=== PATIENT | male | born 1975 | race Two or more races ===

== ENCOUNTER 2019-02-09 16:22 | Emergency (ER) | payer MEDICAID, MEDICARE, OTHER ==
[~2019-02-09] VITALS: Ht 162.6 cm; Wt 81.6 kg
--- NOTE | 2019-02-09 16:34 | NUR ---
ED Nurse Note: PT WALKED IN TO ER TODAY FROM HOME. 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 PT'S SISTER AT BEDSIDE. PER SISTER, PT HAS HAD A ITCHY RASH ON BILATERAL HANDS X 2 DAYS AGO SPREADING TO BILATERAL LOWER LEGS, NECK, AND RIGHT SIDE OF FACE AND EAR X YESTERDAY. PT'S SISTER DENIES ANY CHANGES IN DIET, LAUNDRY DETERGENT OR SOAP. PT'S SISTER STATES THAT THE PT WAS PICKING CHRIS X 2 DAYS AGO AND THAT THERE WERE A LOT OF INSECTS.
[2019-02-09 16:38] VITALS: BP 134/86
[2019-02-09] MEDS ORDERED: Bacitracin Oint UD TOPIC ONE ×3 (16:48→17:00)
--- NOTE | 2019-02-09 16:49 | Emergency Room Report ---
History of Present Illness General Chief Complaint: Skin Rash/Abscess Source: Patient, Family Member Present Illness HPI 43-year-old male with unknown mental illness history brought in by sister complaining of 1 day of pruritic and painful blisters on both hands, posterior auricular right ear, and bilateral feet. Patient is unable to talk and sister does not know which mental illness patient has. Sister reports that she does not know how this happen as patient was with his father yesterday and they were gardening. Does not know whether there was chemical exposure, insect bite. Patient is a poor historian himself. However does not appear in any distress. Vitals are within normal limits. Denies chest pain, shortness of breath, palpitation, fever and chills. Denies tingling numbness. Patient reports that he has full sensation when I asked him a question. Up-to-date with his immunization patient is rating the pain 7 out of 10 without radiation and has not taken any medication. Complains mostly pruritus and there are few blisters that are bleeding his hands Allergies: Coded Allergies: No Known Allergies (Unverified , 02/09/19) Patient History Past Medical History: see triage record Past Surgical History: unable to obtain Pertinent Family History: none Immunizations: UTD Reviewed Nursing Documentation: PMH: Agreed; PSxH: Agreed Nursing Documentation-PMH Past Medical History: No Stated History Review of Systems All Other Systems: negative except mentioned in HPI Physical Exam Vital Signs Date Time Temp Pulse Resp B/P (MAP) Pulse Ox O2 Delivery O2 Flow Rate FiO2 02/09/19 16:27 98.1 76 21 140/93 (109) 98 Room Air General Appearance: normal inspection, well appearing, no apparent distress, alert, GCS 15 Head: normocephalic, atraumatic Eyes: bilateral eye normal inspection, bilateral eye PERRL ENT: normal ENT inspection, hearing grossly normal, normal pharynx Neck: normal inspection, full range of motion, supple, thyroid normal, no meningismus Respiratory: normal inspection, chest non-tender, lungs clear, no rhonchi, no wheezing Cardiovascular #1: normal inspection, normal peripheral pulses, regular rate, rhythm, no murmur, normal capillary refill Cardiovascular #2: 2+ radial (R), 2+ radial (L) Gastrointestinal: normal inspection, soft Genitourinary: no CVA tenderness Musculoskeletal: digits/nails normal, swelling - Bilateral hands, bilateral feet with multiple blisters Neurologic: normal inspection, alert, oriented x3 Psychiatric: normal inspection, judgement/insight normal Skin: other - Multiple clear fluid-filled blisters some bleeding on bilateral dorsum of the hands and feet, and posterior auricular on the right side Lymphatic: normal inspection, no adenopathy Procedures Additional Procedure Procedure Narrative Bacitracin was applied and nonadhesive dressing was applied Medical Decision Making PA Attestation All my diagnosis and treatment plans were reviewed ad discussed with my supervising physician Dr. Davis Diagnostic Impression: Primary Impression: Bullae Additional Impression: Poison anila dermatitis ER Course 43-year-old male with unknown mental illness history brought in by sister complaining of 1 day of pruritic and painful blisters on both hands, posterior auricular right ear, and bilateral feet. Patient is unable to talk and sister does not know which mental illness patient has. Sister reports that she does not know how this happen as patient was with his father yesterday and they were gardening. Does not know whether there was chemical exposure, insect bite. Patient is a poor historian himself. However does not appear in any distress. Vitals are within normal limits. Denies chest pain, shortness of breath, palpitation, fever and chills. Denies tingling numbness. Patient reports that he has full sensation when I asked him a question. Up-to-date with his immunization patient is rating the pain 7 out of 10 without radiation and has not taken any medication. Complains mostly pruritus and there are few blisters that are bleeding his hands Ddx considered but are not limited to: Poison anila, chemical burn, cellulitis Vital signs: are WNL, pt. is afebrile H&PE are most consistent with: possible poison anila infection and cellulitis of both hands and feet ORDERS: Wound care, Keflex, prednisone, hydrocortisone cream, Bactroban ED INTERVENTIONS: Wound clean and dress DISCHARGE: At this time pt. is stable for d/c to home. Will provide printed patient care instructions, and any necessary prescriptions. Care plan and follow up instructions have been discussed with the patient prior to discharge. 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 1 APPLIC TOPIC THREE TIMES A DAY, #15 GM Prov: Yonathan Og 02/09/19 Hydrocortisone 2% Cream (ANTI-ITCH 2% CREAM) Y Cr 2 GM TP TID, #100 GM Prov: Yonathan Og 02/09/19 Cephalexin* (KEFLEX*) 500 Mg Capsule 500 MG ORAL EVERY 6 HOURS for 10 Days, #40 CAP Prov: Yonathan Og 02/09/19 Patient Instructions: Poison Anila, [id number], Wound Care Additional Instructions: Follow-up with your primary care provider for further assessment patient needs to be observed due to mental status possible chemical exposure versus poison anila since patient's caregiver is unsure how it happened and as she was not observing the patient at the time that it happened however the given medication will treat possible infections and also help with symptoms Yonathan Og Feb 09, 2019 16:49
[2019-02-09] MEDS ORDERED: MUPIROCIN15 GM TOPIC (16:55)
[2019-02-09] MEDS ORDERED: PREDNISONE20 M1 PO (16:55)
[2019-02-09] MEDS ORDERED: CEPHALEXIN500 MG ORAL (16:55)
[2019-02-09] MEDS ORDERED: ANTI-ITCH28 G1 TP (16:55)
[2019-02-09 17:06] VITALS: BP 131/79
--- NOTE | 2019-02-09 17:06 | NUR ---
ER DISCHARGE NOTE: Patient is cleared to be discharged per CAIT MURRAY, pt is aox4, on room air, with stable vital signs. pt was given dc and prescription instructions, pt was able to verbalize understanding, pt id band removD. pt is able to ambulate with steady gait. pt took all belongings and left with his family member.
== END 2019-02-09 17:06 | disposition home or self-care (01) ==
LOC: EMR 16:45
DX: L23.7 Allergic contact dermatitis due to plants, except food (principal); R23.8 Other skin changes
CPT/HCPCS: 99282